=== PATIENT | female | born 1960 | race African-American/Black ===

== ENCOUNTER 2018-03-18 18:42 | Emergency (ER) | payer MEDICAID ==
[~2018-03-18] VITALS: Ht 165.1 cm; Wt 70.0 kg
[2018-03-18] MEDS ORDERED: ACETAMINOPHEN 325MG TABLET PO ONE (19:45)
[2018-03-18 20:48] VITALS: BP 145/83
== END 2018-03-18 22:13 | disposition home or self-care (01) ==
LOC: ER 19:07
DX: S82.832A Other fracture of upper and lower end of left fibula, initial encounter for closed fracture (principal); W01.0XXA Fall on same level from slipping, tripping and stumbling without subsequent striking against object, initial encounter; Y93.89 Activity, other specified; Y92.018 Other place in single-family (private) house as the place of occurrence of the external cause
CPT/HCPCS: 29515; 73610; 99284

== ENCOUNTER 2019-04-04 22:52 | Emergency (ER) | payer MEDICAID, MEDICARE ==
[~2019-04-04] VITALS: Ht 170.2 cm; Wt 79.0 kg
[2019-04-05 01:10] VITALS: BP 132/79
== END 2019-04-05 01:15 | disposition home or self-care (01) ==
LOC: ER 22:52
DX: F16.10 Hallucinogen abuse, uncomplicated (principal); F17.200 Nicotine dependence, unspecified, uncomplicated; Z88.6 Allergy status to analgesic agent
CPT/HCPCS: 99283